=== PATIENT | male | born 1950 | race Caucasian/White ===

== ENCOUNTER → 2024-09-28 06:21 | Day surgery (SDC) | payer OTHER, SELFPAY ==
[2024-09-28 11:27] LABS: Glucose - Point of Care 154 mg/dl (70-99)
== END ==
LOC: GI 06:21
PROVIDERS: ATTENDING PHYSICIAN Internal Medicine Gastroenterology
DX: Z12.11 Encounter for screening for malignant neoplasm of colon (principal); K57.30 Diverticulosis of large intestine without perforation or abscess without bleeding; K64.8 Other hemorrhoids; D12.0 Benign neoplasm of cecum; D12.2 Benign neoplasm of ascending colon; K63.5 Polyp of colon; K44.9 Diaphragmatic hernia without obstruction or gangrene; K31.89 Other diseases of stomach and duodenum; R11.0 Nausea
CPT/HCPCS: 45380; 43239; 88305; 82962; 88342

== ENCOUNTER 2024-12-14 06:17 | Day surgery (SDC) | payer OTHER, SELFPAY ==
[2024-12-14 08:40] VITALS: BP 165/99
[2024-12-14 08:47] VITALS: BMI 24.4
[2024-12-14 08:48] VITALS: BMI 24.4
[2024-12-14 11:35] VITALS: BP 150/84
[2024-12-14 11:45] VITALS: BP 156/93
== END 2024-12-14 12:10 | disposition home or self-care (01) ==
LOC: SDS 06:17
PROVIDERS: Internal Medicine Gastroenterology; ATTENDING PHYSICIAN Internal Medicine Gastroenterology
PROC: 0DBE8ZX Excision of Large Intestine, Via Natural or Artificial Opening Endoscopic, Diagnostic (ICD-10-PCS; 2024-12-14)
DX: D12.0 Benign neoplasm of cecum (principal); D12.1 Benign neoplasm of appendix; K64.0 First degree hemorrhoids
CPT/HCPCS: 45390; 45385; 88305

== ENCOUNTER → 2025-04-20 09:10 | Outpatient (REF) | payer OTHER, SELFPAY | LOC: HWRAD 09:10 | PROVIDERS: ATTENDING PHYSICIAN Internal Medicine Gastroenterology; FAMILY PHYSICIAN Family Medicine | DX: R78.89 Finding of other specified substances, not normally found in blood (principal) | CPT/HCPCS: 76700 ==

== ENCOUNTER 2025-07-10 06:19 | Day surgery (SDC) | payer OTHER, SELFPAY | END 2025-07-10 10:12 | disposition home or self-care (01) | LOC: GI 06:19 | PROVIDERS: ATTENDING PHYSICIAN Internal Medicine Gastroenterology | DX: Z12.11 Encounter for screening for malignant neoplasm of colon (principal); D12.2 Benign neoplasm of ascending colon; K57.30 Diverticulosis of large intestine without perforation or abscess without bleeding; K62.1 Rectal polyp; K64.8 Other hemorrhoids; Z86.0100 Personal history of colon polyps, unspecified; Z98.0 Intestinal bypass and anastomosis status | CPT/HCPCS: 45385; 45380; 88305 ==